=== PATIENT | female | born 1995 | race Hispanic/Latino ===

== ENCOUNTER 2019-04-19 13:05 | Inpatient (IN) ==
[2019-04-19 13:27] LABS: URINE SOURCE VOIDED
[2019-04-19 13:37] LABS: BILIRUBIN URINE NEGATIVE (NEGATIVE); BLOOD URINE MODERATE (NEGATIVE); COLOR YELLOW; GLUCOSE URINE NEGATIVE (NEGATIVE); KETONE URINE NEGATIVE (NEGATIVE); LEUKOCYTES URINE SMALL (NEGATIVE); NITRITE URINE NEGATIVE (NEGATIVE); PH URINE 6.5; PROTEIN URINE 30 mg/dL (NEGATIVE); TURBIDITY URINE HAZY (CLEAR); UROBILINOGEN URINE NORMAL (NORMAL)
[2019-04-19 14:00] LABS: UR AMPHETAMINES QUAL NONE DETECTED (NONE DETECT); UR BARBITUATES QUAL NONE DETECTED (NONE DETECT); UR BENZODIAZEPIN QUAL NONE DETECTED (NONE DETECT); UR CANNABINOIDS QUAL NONE DETECTED (NONE DETECT); UR COCAINE QUAL NONE DETECTED (NONE DETECT); UR METHADONE QUAL NONE DETECTED (NONE DETECT); UR OPIATES QUAL NONE DETECTED (NONE DETECT); UR OXYCODONE QUAL NONE DETECTED (NONE DETECT); UR PCP QUAL NONE DETECTED (NONE DETECT)
[2019-04-19 14:48] LABS: BASO# 0.03 X1000 (0.0-0.2); BASO% 0.5 % (0.0-0.8); EOS# 0.04 X1000 (0.0-0.7); EOS% 0.6 % (0.0-10.0); HEMATOCRIT 36.5 % (37.0-47.0); HEMOGLOBIN 11.6 g/dL (12.0-16.0); IMM GRAN# 0.03 X1000 (0.0-0.04); IMM GRAN% 0.5 % (0.0-0.5); LYMPH# 1.58 X1000 (1.2-3.4); LYMPH% 24.4 % (20.5-51.1); MCH 26.9 PG (27-31); MCHC 31.8 g/dL (33-37); MCV 84.5 FL (81-99); MONO# 0.49 X1000 (0.11-0.59); MONO% 7.6 % (1.7-9.3); MPV 10.7 FL (7.4-10.4); NEUT# 4.31 X1000 (1.4-6.5); NEUT% 66.4 % (42.2-75.2); PLT 259 X1000 (130-400); RBC 4.32 XMIL (4.2-5.4); WBC 6.48 X1000 (4.8-10.8)
[2019-04-19] MEDS ORDERED: KEFZOL 1 GM/D5W 1 GM/50 ML IVPB IV PRN (14:50)
[2019-04-19] MEDS ORDERED: PEPCID IV PRN (14:50)
[2019-04-19] MEDS ORDERED: REGLAN PO ONE (14:50)
[2019-04-19] MEDS ORDERED: STADOL IV PRN (14:50)
[2019-04-19] MEDS ORDERED: LR 500 ML IV ONE (14:50)
[2019-04-19] MEDS ORDERED: AMPICILLIN 2 GM in NS 100 ML IV ONE (14:50)
[2019-04-19] MEDS ORDERED: ZOFRAN IV PRN (14:50)
[2019-04-19] MEDS ORDERED: PEPCID PO PRN (14:50)
[2019-04-19] MEDS ORDERED: PEPCID PO ONE (14:50)
[2019-04-19] MEDS ORDERED: SODIUM CHLORIDE 0.9% INJ SCH (15:00)
[2019-04-19] MEDS ORDERED: LR 1,000 ML IV SCH (15:00)
[2019-04-19] MEDS ORDERED: PITOCIN 30 UNITS/NS 30 UNIT/500 ML IV.SOLN IV SCH ×2 (15:00→19:15)
[2019-04-19] MEDS ORDERED: XYLOCAINE-MPF 1% INJ PRN ×2 (15:22→19:07)
--- NOTE | 2019-04-19 16:16 | Diag Imaging Result Doc PS360 ---
EXAM: US OBS COMPLETE > 14 WKS 04/19/2019 HISTORY: no care, position TECHNIQUE: OB ultrasound transabdominal scan COMMENT: There is a viable intrauterine fetus with a heart rate of 144 bpm and a posterior fundal placenta. The fetus is in cephalic presentation. The cervix is not well demonstrated. There is a qualitatively normal amniotic fluid volume. Based on multiple parameters estimated gestational age is 39 weeks one day +/- 16 days. The CHIRAG should be 04/25/2019. The estimated weight is 3824 g +/- 444 g. There is a three-vessel cord, normal bladder, kidneys, face, orbits, stomach, and spine. There is a four chambered heart. IMPRESSION: Viable intrauterine gestation at 39 weeks one day by ultrasound. Electronically signed by James Zaidi 04/19/2019 4:14 PM
[2019-04-19 17:13] LABS: RAPID HIV PRESUMPTIVE NEGATIVE; RUBELLA SCREEN IMMUNE (IMMUNE)
[2019-04-19] MEDS ORDERED: CYTOTEC PR ONE (18:30)
[2019-04-19] MEDS ORDERED: CYTOTEC ONE (18:35)
[2019-04-19] MEDS ORDERED: AMPICILLIN 1 GM in NS 50 ML IV SCH (18:50)
[2019-04-19] MEDS ORDERED: PITOCIN IM PRN (19:07)
[2019-04-19] MEDS ORDERED: MINERAL OIL PO PRN (19:07)
[2019-04-19] MEDS ORDERED: BENADRYL IV PRN (19:07)
[2019-04-19] MEDS ORDERED: M-M-R II VACCINE SUBQ ONE (19:07)
[2019-04-19] MEDS ORDERED: PERI MEDS (DERMOPLAST/NUPERCAINAL/TUCKS) MISC PRN (19:07)
[2019-04-19] MEDS ORDERED: HYDROXYZINE IM PRN (19:07)
[2019-04-19] MEDS ORDERED: PITOCIN 20 UNITS/NS 20 UNITS/1,000 ML IV.SOLN ONE (19:07)
[2019-04-19] MEDS ORDERED: BOOSTRIX VACCINE IM ONE (19:07)
[2019-04-19] MEDS ORDERED: AMBIEN PO PRN (19:07)
[2019-04-19] MEDS ORDERED: ATARAX PO PRN (19:07)
[2019-04-19] MEDS ORDERED: CYTOTEC PO PRN (19:07)
[2019-04-19] MEDS ORDERED: BENADRYL PO PRN (19:07)
[2019-04-19] MEDS ORDERED: PITOCIN 20 UNITS/NS 20 UNITS/1,000 ML IV.SOLN IV SCH (19:15)
[2019-04-19] MEDS: MOTRIN PO PRN (19:32)
[2019-04-19] MEDS: PERICOLACE PO SCH (22:15)
[2019-04-19] MEDS: TYLENOL PO PRN (22:15)
[2019-04-20] MEDS: TYLENOL PO PRN ×3 (02:26→19:24)
--- NOTE | 2019-04-20 03:23 | HISTORY AND PHYSICAL ---
HISTORY OF PRESENT ILLNESS: Mrs Pedro is a 24-year-old, G5, P4-0-0-4, at 39 weeks and 1 day based off of ultrasound completed today, who presents with no care. The patient reports spontaneous rupture of membranes and a small amount of blood at approximately 6 a.m. today. The patient admits to contractions starting last night at irregular intervals of unknown duration. Reports good movement throughout . Denies headache, dizziness, chest pain, dysuria, or changes in vision. PAST MEDICAL HISTORY: None. CURRENT MEDICATIONS: vitamins. PAST SURGICAL HISTORY: None. ALLERGIES: No known drug allergies. FAMILY HISTORY: Noncontributory. SOCIAL HISTORY: Denies tobacco, alcohol, or drug use. GYNECOLOGIC HISTORY: Denies STD exposure. OBSTETRICAL HISTORY: G5, P4-0-04 prior full-term deliveries, all born in [facility]. PHYSICAL EXAMINATION: VITAL SIGNS: Temp 98 degrees Fahrenheit, pulse rate 81, respiration rate 18, blood pressure 124/74, O2 sats 98% on room air. Weight 165 pounds, height 5 feet 0 inches tall. BMI 28.2 kg/m2. GENERAL: No acute distress. Alert, awake, oriented x3. CARDIOVASCULAR: Regular rate and rhythm. Positive S1, S2. RESPIRATORY: Clear to auscultation. Negative rhonchi, rales or wheezing. ABDOMEN: Nontender to palpation. Gravid, soft. EXTREMITIES: No calf tenderness. GENITOURINARY: Sterile vaginal exam, 5 cm dilated, 90% effaced, -1 station. External monitoring, baseline 130 beats per minute, minimal variability, no accelerations, no decelerations. Ultrasound, gestational age 39 weeks and 1 day, cephalic presentation, 3124 g. LABORATORY: WBCs 6.48, hemoglobin 11.6, hematocrit 36.5, platelets 259,000. Glucose 76. membrane rupture positive. Urine drug screen negative. RPR nonreactive. HIV negative. Rubella immune. ASSESSMENT: Mrs. Pedro is a 24-year-old, G5, P4-0-0-4 at 39 weeks and 1 day, who presented in latent phase of labor with spontaneous rupture of membranes. PLAN: 1. Admit to Labor and Delivery. 2. Obtain routine labor labs. 3. Continuous external monitoring. 4. GBS prophylaxis for GBS unknown. 5. Estimated weight 7 pounds. 6. Anticipate vaginal delivery. Patient counseled on risks, benefits, and alternatives to vaginal delivery. Risks not limited to infection, bleeding, vaginal laceration, vacuum delivery or emergency delivery. The patient understands risks and agrees to procedure.
[2019-04-20 04:49] LABS: BASO# 0.02 X1000 (0.0-0.2); BASO% 0.2 % (0.0-0.8); EOS# 0.07 X1000 (0.0-0.7); EOS% 0.9 % (0.0-10.0); HEMATOCRIT 31.6 % (37.0-47.0); HEMOGLOBIN 9.9 g/dL (12.0-16.0); IMM GRAN# 0.03 X1000 (0.0-0.04); IMM GRAN% 0.4 % (0.0-0.5); LYMPH# 1.78 X1000 (1.2-3.4); LYMPH% 21.8 % (20.5-51.1); MCH 26.5 PG (27-31); MCHC 31.3 g/dL (33-37); MCV 84.5 FL (81-99); MONO% 9.8 % (1.7-9.3); MPV 10.5 FL (7.4-10.4); NEUT# 5.45 X1000 (1.4-6.5); NEUT% 66.9 % (42.2-75.2); PLT 215 X1000 (130-400); RBC 3.74 XMIL (4.2-5.4); WBC 8.15 X1000 (4.8-10.8)
--- NOTE | 2019-04-20 06:58 | OPERATIVE NOTE ---
PROCEDURE DATE: 04/19/2019 PROCEDURE PERFORMED: Vaginal delivery. SURGEON: Justina Jackson DO HAT MARKER: Cecilio Brar, medical student, year 3. DESCRIPTION OF PROCEDURE: The patient delivered a viable female weighing 7 pounds 2 ounces with scores of 9 and 10 at 1 and 5 minutes respectively. The vertex delivered spontaneously over intact perineum. No nuchal cord was identified. The anterior shoulder was delivered via maternal expulsive efforts with the assistance of downward traction. The posterior shoulder was delivered with maternal expulsive efforts and upward traction. The remainder of the fetus delivered spontaneously. Upon delivery, the cord was clamped and cut. Then, the was assessed by waiting undercutter staff. Cord blood was then obtained for blood gas analysis. The placenta delivered spontaneously intact with a three-vessel cord. To enhance uterine contractions, 30 units of IV oxytocin was administered. The cervix, vagina, and perineum were inspected for lacerations. No lacerations were noted. However, uterine atony at the lower uterine segment was noted, and the patient was given 1000 mcg of Cytotec per rectum to assist with uterine contractions and decrease blood loss. ESTIMATED BLOOD LOSS: 250 mL.
[2019-04-20] MEDS: MOTRIN PO PRN ×2 (08:15→19:19)
--- NOTE | 2019-04-20 08:51 | OB/GYN PROGRESS NOTE ---
- Subjective PPD 1 . Pt complains of lower extremity pain. Fundus is firm and nontender. Abd is soft and nontender. Bilat calf tenderness. A/P: Stable PPD 1. Will get doppler flow of lower ext. Probable discharge home tomorrow. OB Physical Exam Vital Signs - 8 hr 04/20/19 04:05 04/20/19 07:37 Temperature 97.6 F 97.4 F L Pulse Rate 80 70 Respiratory Rate 16 18 Blood Pressure 104/67 97/52 O2 Sat by Pulse Oximetry 98 98 - CONSTITUTIONAL General Appearance: appears well, alert, no apparent distress - GASTROINTESTINAL (ABDOMEN) Abdominal Exam: non tender, soft - GENITOURINARY Female Genitalia/Pelvic Exam: deferred Active Medications Generic Name Dose Route Start Last Admin Trade Name Freq PRN Reason Stop Dose Admin Acetaminophen 650 mg 04/19/19 14:50 04/20/19 02:26 Tylenol PO 650 mg Q4-6H PRN PRN Administration Headache Benzocaine 1 each 04/19/19 19:07 Benita Meds (Dermoplast/Nupercainal/Tucks) MISC 3-4XDAY PRN PRN episiotomy/hemorrhoids Diphenhydramine HCl 12.5 mg 04/19/19 19:07 Benadryl IV Q4H PRN PRN Itching Diphenhydramine HCl 25 mg 04/19/19 19:07 Benadryl PO Q4H PRN PRN Itching Famotidine 20 mg 04/19/19 14:50 Pepcid IV Q12H PRN PRN GI upset or indigestion Famotidine 40 mg 04/19/19 14:50 Pepcid PO Q12H PRN PRN GI upset or indigestion Hydroxyzine HCl 50 mg 04/19/19 19:07 Atarax PO Q3-4H PRN PRN Nausea Hydroxyzine HCl 50 mg 04/19/19 19:07 Hydroxyzine IM Q3-4H PRN PRN Nausea Cefazolin Sodium/Dextrose 1 gm in 50 mls @ 100 mls/hr 04/19/19 14:50 Kefzol 1 Gm/D5w IV ONCE PRN PRN SECTION Oxytocin/Sodium Chloride 20 units in 1,000 mls @ 0 mls/hr 04/19/19 19:15 04/19/19 19:15 Pitocin 20 Units/Ns IV 125 mls/hr .Q0M RAMBO Administration As Directed Ibuprofen 800 mg 04/19/19 19:07 04/20/19 08:15 Motrin PO 800 mg Q8H PRN PRN Administration cramping Mineral Oil 30 ml 04/19/19 19:07 Mineral Oil PO PRN PRN Perineal massage Misoprostol 800 microgm 04/19/19 19:07 Cytotec PO PRN PRN Severe bleeding Ondansetron HCl 4 mg 04/19/19 14:50 Zofran IV PRN PRN Nausea Oxytocin 20 unit 04/19/19 19:07 Pitocin IM PRN PRN Severe bleeding Senna/Docusate Sodium 1 each 04/19/19 21:00 04/19/19 22:15 Pericolace PO 1 each QHS RAMBO Administration Sodium Chloride 5 - 10 ml 04/19/19 15:00 Sodium Chloride 0.9% INJ DIRECTED RAMBO Zolpidem Tartrate 10 mg 04/19/19 19:07 Ambien PO HS PRN PRN Sleep Laboratory Results - last 24 hr 04/19/19 04/19/19 04/19/19 13:13 13:13 13:13 WBC RBC Hgb Hct MCV MCH MCHC RDW Std Deviation Plt Count MPV Immature Gran % (Auto) Neut % (Auto) Lymph % (Auto) [place] % (Auto) Eos % (Auto) Baso % (Auto) Immature Gran # (Auto) Neut # (Auto) Lymph # (Auto) [place] # (Auto) Eos # (Auto) Baso # (Auto) Glucose Urine Source VOIDED Urine Color YELLOW Urine Turbidity HAZY Urine pH 6.5 Ur Specific [place] 1.010 Urine Protein 30 A Ur Glucose (Stick) NEGATIVE Ur Ketones (Stick) NEGATIVE Urine Blood MODERATE A Urine Nitrite NEGATIVE Urine Bilirubin NEGATIVE Urobilinogen Dipstick NORMAL Urine Leukocytes SMALL A Membranes Rupture POSITIVE Urine Opiates Screen NONE DETECTED Ur Oxycodone Screen NONE DETECTED Ur Methadone, Qual NONE DETECTED Ur Barbiturates Screen NONE DETECTED Ur Phencyclidine Scrn NONE DETECTED Ur Amphetamines Screen NONE DETECTED U Benzodiazepines Scrn NONE DETECTED Urine Cocaine Screen NONE DETECTED U Cannabinoids Screen NONE DETECTED RPR HIV 1&2 Antibody Rapid Rubella Immunity Screen Blood Type Blood Type Confirm Antibody Screen 04/19/19 04/19/19 04/19/19 14:39 14:39 14:39 WBC 6.48 RBC 4.32 Hgb 11.6 L Hct 36.5 L MCV 84.5 MCH 26.9 L MCHC 31.8 L RDW Std Deviation 14.0 Plt Count 259 MPV 10.7 H Immature Gran % (Auto) 0.5 Neut % (Auto) 66.4 Lymph % (Auto) 24.4 [place] % (Auto) 7.6 Eos % (Auto) 0.6 Baso % (Auto) 0.5 Immature Gran # (Auto) 0.03 Neut # (Auto) 4.31 Lymph # (Auto) 1.58 [place] # (Auto) 0.49 Eos # (Auto) 0.04 Baso # (Auto) 0.03 Glucose 76 Urine Source Urine Color Urine Turbidity Urine pH Ur Specific [place] Urine Protein Ur Glucose (Stick) Ur Ketones (Stick) Urine Blood Urine Nitrite Urine Bilirubin Urobilinogen Dipstick Urine Leukocytes Membranes Rupture Urine Opiates Screen Ur Oxycodone Screen Ur Methadone, Qual Ur Barbiturates Screen Ur Phencyclidine Scrn Ur Amphetamines Screen U Benzodiazepines Scrn Urine Cocaine Screen U Cannabinoids Screen RPR NON-REACTIVE HIV 1&2 Antibody Rapid Rubella Immunity Screen Blood Type Blood Type Confirm Antibody Screen 04/19/19 04/19/19 04/19/19 14:39 14:39 17:24 WBC RBC Hgb Hct MCV MCH MCHC RDW Std Deviation Plt Count MPV Immature Gran % (Auto) Neut % (Auto) Lymph % (Auto) [place] % (Auto) Eos % (Auto) Baso % (Auto) Immature Gran # (Auto) Neut # (Auto) Lymph # (Auto) [place] # (Auto) Eos # (Auto) Baso # (Auto) Glucose Urine Source Urine Color Urine Turbidity Urine pH Ur Specific [place] Urine Protein Ur Glucose (Stick) Ur Ketones (Stick) Urine Blood Urine Nitrite Urine Bilirubin Urobilinogen Dipstick Urine Leukocytes Membranes Rupture Urine Opiates Screen Ur Oxycodone Screen Ur Methadone, Qual Ur Barbiturates Screen Ur Phencyclidine Scrn Ur Amphetamines Screen U Benzodiazepines Scrn Urine Cocaine Screen U Cannabinoids Screen RPR HIV 1&2 Antibody Rapid PRESUMPTIVE NEGATIVE Rubella Immunity Screen IMMUNE Blood Type O POSITIVE Blood Type Confirm O POSITIVE Antibody Screen NEGATIVE 04/20/19 04:45 WBC 8.15 RBC 3.74 L Hgb 9.9 L Hct 31.6 L MCV 84.5 MCH 26.5 L MCHC 31.3 L RDW Std Deviation 14.0 Plt Count 215 MPV 10.5 H Immature Gran % (Auto) 0.4 Neut % (Auto) 66.9 Lymph % (Auto) 21.8 [place] % (Auto) 9.8 H Eos % (Auto) 0.9 Baso % (Auto) 0.2 Immature Gran # (Auto) 0.03 Neut # (Auto) 5.45 Lymph # (Auto) 1.78 [place] # (Auto) 0.80 H Eos # (Auto) 0.07 Baso # (Auto) 0.02 Glucose Urine Source Urine Color Urine Turbidity Urine pH Ur Specific [place] Urine Protein Ur Glucose (Stick) Ur Ketones (Stick) Urine Blood Urine Nitrite Urine Bilirubin Urobilinogen Dipstick Urine Leukocytes Membranes Rupture Urine Opiates Screen Ur Oxycodone Screen Ur Methadone, Qual Ur Barbiturates Screen Ur Phencyclidine Scrn Ur Amphetamines Screen U Benzodiazepines Scrn Urine Cocaine Screen U Cannabinoids Screen RPR HIV 1&2 Antibody Rapid Rubella Immunity Screen Blood Type Blood Type Confirm Antibody Screen
[2019-04-20 11:14] LABS: HIV ANTIBODY SCREEN SEE COMMENTS
[2019-04-20 14:30] LABS: HEPATITIS B SURFACE ANTIGEN SEE COMMENTS
[2019-04-20] MEDS: PERICOLACE PO SCH (21:23)
[2019-04-21] MEDS: MOTRIN PO PRN (05:13)
[2019-04-21] MEDS ORDERED: FLU VACCINE IM ONE (07:08)
[2019-04-21 08:44] VITALS: BP 106/63
--- NOTE | 2019-04-21 23:35 | DISCHARGE SUMMARY ---
ADMISSION DATE: 04/19/2019 DISCHARGE DATE: 04/21/2019 HISTORY OF PRESENT ILLNESS: The patient is a 24-year-old 5, para 4, with no care. She presented at 39 weeks confirmed by ultrasound in active labor. She was noted to be 5 cm on admission. PAST MEDICAL HISTORY: Benign. She was taking vitamins. PAST SURGICAL HISTORY: Negative. FAMILY HISTORY: Noncontributory. SOCIAL HISTORY: She denied tobacco, alcohol, and drug use. HOSPITAL COURSE: Her previous deliveries were normal spontaneous vaginal deliveries in [facility]. The patient was admitted and delivered uneventfully over an intact perineum of a full-term living female child. Apgars were 9 and 10. The weighed 7 pounds, 2 ounces. The patient's course was essentially benign. She did have Doppler studies for complaint of leg pain. However, this was negative. The patient was discharged home in excellent condition with follow up in 4 weeks with the primary care provider. She was discharged home with Motrin and Percocet . Her did understand Maltese quite well and verbalized understanding of discharge precautions with no additional questions. [facility]
--- NOTE | 2019-04-22 03:43 | Extremity Venous Study ---
PROCEDURE NAME: Venous U/S Bilateral Legs - 04/20/2019 REQUESTING PHYSICIAN: Dr. Jackson. ETHERNET NETWORK ARCHITECT: [place]. INDICATIONS: Pain status post delivery. EQUIPMENT: One Codexid E9 ultrasound system with 9 L-D transducer. FINDINGS: Images of bilateral lower extremity venous systems were obtained in both sagittal and transverse planes. Doppler was used to evaluate veins for spontaneity, phasicity, respiratory excursion, and digital augmentation. RESULTS: Normal venous compression. Normal venous flow. No obvious superficial or deep venous thrombosis noted. INTERPRETATION: Essentially normal bilateral lower extremity venous study. cc: MD Jarod Mejia MD
== END 2019-04-21 10:30 | disposition home or self-care (01) | DRG 807 ==
LOC: OPLD 13:05 → LD 13:10
PROVIDERS: ADMIT Obstetrics & Gynecology; ATTEND Obstetrics & Gynecology